=== PATIENT | male | born 2000 | race Caucasian/White ===

== ENCOUNTER → 2025-01-07 | Day surgery (SDC) | payer OTHER ==
[~2025-01-07] VITALS: Ht 162.6 cm; Wt 60.1 kg
[~2025-01-07] MED LIST: NOCURR; PROPOFOL 1% 20 ML VIAL IVP ONE; SUCR1ORA42 PO
[2025-01-07] MEDS: SODIUM CHLORIDE 0.9% 1,000 ML IV ONE (09:25)
== END | disposition still patient (30) ==
LOC: SDS 08:33
PROVIDERS: ATTEND Internal Medicine
DX: K29.60 Other gastritis without bleeding (principal); K21.9 Gastro-esophageal reflux disease without esophagitis; Z90.49 Acquired absence of other specified parts of digestive tract; Z98.890 Other specified postprocedural states; Z79.899 Other long term (current) drug therapy; Z88.8 Allergy status to other drugs, medicaments and biological substances; Z91.040 Latex allergy status
CPT/HCPCS: 88305; 43239; C1769; J2704